=== PATIENT | female | born 1965 | race Caucasian/White ===

== ENCOUNTER 2022-04-15 15:50 | Emergency (ER) | payer SELFPAY ==
[~2022-04-15] VITALS: Ht 157.5 cm; Wt 75.0 kg
[2022-04-15 15:52] VITALS: BP 124/60
== END 2022-04-15 18:58 | disposition left against medical advice (07) ==
LOC: ER 15:50
DX: Z53.21 Procedure and treatment not carried out due to patient leaving prior to being seen by health care provider (principal)